=== PATIENT | male | born 1955 | race Caucasian/White ===

== ENCOUNTER 2018-04-10 23:35 | Observation (INO) | payer MEDICARE, BC, OTHER ==
[2018-04-10] MEDS ORDERED: DIPHENHYDRAMINE HCL 50 MG/ML VIAL IV ONE (23:46)
[2018-04-10] MEDS ORDERED: EPINEPHRINE INJ/PF 1 MG/1 ML AMPULE IM ONE (23:46)
[2018-04-10] MEDS ORDERED: FAMOTIDINE INJ/PF 20 MG/2 ML SDV IV ONE (23:46)
[2018-04-10] MEDS ORDERED: METHYLPREDNISOLONE INJ 125 MG/2 ML SDV IV ONE (23:46)
[2018-04-10] MEDS ORDERED: EPINEPHRINE INJ/PF 1 MG/1 ML AMPULE ONE (23:46)
--- NOTE | 2018-04-10 23:50 | ER Document Report ---
ED General - General Chief Complaint: Allergic Reaction Stated Complaint: POSSIBLE ALLERGIC REACTION Time Seen by Provider: 04/10/18 23:42 Notes: Patient is a 63-year-old male who presents with complaint of lip and tongue swelling. Patient said that symptoms initially started right after he was bit by fire ants working in the front yard. He does not take any CELINE inhibitors. He says he also has some itching watery eyes. Patient says symptoms have progressed over last couple hours and eventually his family told me he had to come in to be evaluated because his speech was becoming funny because his tongue was swelling. He denies difficulty breathing or swallowing at this time. He does admit to drinking some alcohol today and says he does drink every day but does not get withdrawal if he goes without drinking. He does smoke. He denies history of COPD or emphysema. He has no other complaints at this time. TRAVEL OUTSIDE OF THE [place] IN LAST 30 DAYS: No - Related Data Allergies/Adverse Reactions: No Known Allergies Allergy (Unverified 08/09/15 23:44) Past Medical History - Social History Smoking Status: Current Every Day Smoker Frequency of alcohol use: Heavy Drug Abuse: None Family History: Reviewed & Not Pertinent Review of Systems - Review of Systems Notes: My Normal Review Basic REVIEW OF SYSTEMS: CONSTITUTIONAL : Denies fever, chills, or sweats. Denies recent illness. EENT: Tongue and lip swelling CARDIOVASCULAR: Denies chest pain. RESPIRATORY: Denies cough, cold, or chest congestion. Denies shortness of breath, difficulty breathing, or wheezing. GASTROINTESTINAL: Denies abdominal pain. Denies nausea, vomiting, or diarrhea. Denies constipation. Last BM: MUSCULOSKELETAL: Denies neck or back pain or joint pain or swelling. SKIN: Denies rash or skin lesions. NEUROLOGICAL: Denies altered mental status or loss of consciousness. Denies headache. Denies weakness or paralysis or loss of use of either side. Denies problems with gait or speech. Denies sensory or motor loss. ALL OTHER SYSTEMS REVIEWED AND NEGATIVE. Physical Exam - Vital signs Vitals: Resp Pulse Ox 16 100 04/10/18 23:46 04/10/18 23:46 - Notes Notes: General Appearance: Well nourished, alert, cooperative, no acute distress, no obvious discomfort. Well-appearing without distress. Normal voice with just very slightly slurred speech because of his enlarged tongue. Vitals: reviewed, See vital signs table. Head: no swelling or tenderness to the head Eyes: PERRL, EOMI, Conjuctiva clear Mouth: Patient does have some tongue swelling. Is able to fully stick his tongue out his mouth and pulled back in his mouth without difficulty. No posterior pharyngeal swelling. Mild swelling of the lips. Throat: No tonsillar inflammation, No airway obstruction, No lymphadenopathy Neck: Supple, no neck tenderness, No thyromegaly Lungs: No wheezing, No rales, No rhonci, No accessory muscle use, good air exchange bilaterally. Heart: Normal rate, Regular rythm, No murmur, no rub Extremities: strength 5/5 in all extremities, good pulses in all extremities, no swelling or tenderness in the extremities, no edema. Skin: warm, dry, appropriate color, small bumps on patient's feet consistent with fire ant bites. Neuro: speech clear, oriented x 3, normal affect, responds appropriately to questions. Course - Re-evaluation Re-evalutation: 04/11/18 00:31 I did reevaluate the patient. He says he continues to feel well. His tongue is still enlarged. This may be just a little smaller than was earlier. Is no distress and continues to look well. We will continue to monitor the patient. He is having occasional PVCs. Will withhold any further epi at this time unless is absolutely needed. He denies any chest pain. 04/11/18 02:33 Patient's continues to have some mild tongue swelling. Swelling got worse and is not getting any better since last time I checked him. He did have a blood pressure was 91/69. I rechecked him realize he was laying on top of his blood pressure cuff. I repositioned him and his blood pressure on recheck is 112/78. He looks well. He has got no evidence of impending airway compromise at this time. Being that his tongue swelling is not significantly improved I think is appropriate treatment for observation. I did speak with the hospitalist, Dr. Haley, agrees to admit him. Of note the patient's serum creatinine is elevated. The only creatinine I have to compare to is from 2015. - Vital Signs Vital signs: Temp Pulse Resp BP Pulse Ox 20 104/70 93 04/11/18 02:02 04/11/18 02:01 04/11/18 02:02 - Laboratory Result Diagrams: 04/11/18 00:37 04/11/18 00:37 Laboratory results interpreted by me: 04/11/18 04/11/18 00:37 00:37 WBC 10.8 H RBC 4.27 L Carbon Dioxide 21 L BUN 38 H Creatinine 2.15 H Est GFR ( Amer) 38 L Est GFR (Non-Af Amer) 31 L Glucose 137 H Discharge - Discharge Clinical Impression: Tongue swelling, Renal insufficiency Allergic reaction Qualifiers: Encounter type: initial encounter Qualified Code(s): T78.40XA - Allergy, unspecified, initial encounter Condition: Stable Disposition: ADMITTED OBSERVATION Admitting Provider: Hospitalist Unit Admitted: [facility]
[2018-04-11 00:56] LABS: ABSOLUTE BASOPHILS # (AUTO) 0.1 10^3/uL (0.0-0.2); ABSOLUTE EOSINOPHILS # (AUTO) 0.2 10^3/uL (0.0-0.6); ABSOLUTE LYMPHOCYTES (AUTO) 4.2 10^3/uL (0.5-4.7); ABSOLUTE NEUT (AUTO) 5.3 10^3/uL (1.7-8.2); EOSINOPHILS % (AUTO) 1.7 % (0-6); HEMATOCRIT 39.9 % (37.9-51.0); LYMPHOCYTES % (AUTO) 38.8 % (13-45); MEAN CORPUSCULAR HEMOGLOBIN 32.7 pg (27.0-33.4); MEAN CORPUSCULAR VOLUME 93 fl (80-97); MONOCYTES % (AUTO) 9.7 % (3-13); PLATELET COUNT 201 10^3/uL (150-450); RED BLOOD COUNT 4.27 10^6/uL (4.35-5.55); RED CELL DISTRIBUTION WIDTH 13.6 % (11.5-14.0); SEGMENTED NEUTROPHILS % (AUTO) 48.8 % (42-78); TOTAL CELLS COUNTED % (AUTO) 100 %; WHITE BLOOD COUNT 10.8 10^3/uL (4.0-10.5)
[2018-04-11 01:05] LABS: ANION GAP 14 (5-19); BLOOD UREA NITROGEN 38 mg/dL (7-20); CALCIUM 9.8 mg/dL (8.4-10.2); CARBON DIOXIDE 21 mmol/L (22-30); CHLORIDE 106 mmol/L (98-107); GLUCOSE 137 mg/dL (75-110); POTASSIUM 4.2 mmol/L (3.6-5.0); SODIUM 140.5 mmol/L (137-145)
[2018-04-11] MEDS ORDERED: PROMETHAZINE HCL INJ 25 MG/1 ML VIAL IV PRN (02:29)
[2018-04-11] MEDS ORDERED: ACETAMINOPHEN 325 MG TABLET PO PRN (02:29)
[2018-04-11] MEDS ORDERED: METHYLPREDNISOLONE INJ 40 MG/1 ML SDV IV ONE (02:34)
[2018-04-11] MEDS ORDERED: NORMAL SALINE 1000 ML 1,000 ML IV PRN (02:37)
[2018-04-11] MEDS ORDERED: FAMOTIDINE 20 MG TABLET PO ONE (02:45)
--- NOTE | 2018-04-11 02:47 | PDOC H&P ---
History of Present Illness History of Present Illness: TANG CHU is a 63 year old male patient who presented with chief complaint of swelling of his tongue and lip after he was bit by fire ants while he was moving his yard. Patient also complaining of itchiness and watery eyes. Patient has history of hypertension and hyperlipidemia and he is also everyday smoker. He denies use of CELINE inhibitors for his hypertension. Patient was given epinephrine, Benadryl, H2 anthony and Solu-Medrol. There is no sign and symptoms of throat swelling or difficulty of breathing. Patient denies any fever cough nausea, vomiting, diarrhea. His lab work shows creatinine of 2.15 and GFR of 34. We do not know his baseline creatinine seems more of chronic kidney disease. Past Medical History Cardiac Medical History: Reports: DVT, Hypertension Past Surgical History Past Surgical History: Reports: None Social History Smoking Status: Current Every Day Smoker Frequency of Alcohol Use: None Hx Recreational Drug Use: No Hx Prescription Drug Abuse: No - Advance Directive Resuscitation Status: Full Code Family History Family History: None, Reviewed & Not Pertinent Parental Family History Reviewed: Yes Children Family History Reviewed: Yes Sibling(s) Family History Reviewed.: Yes Medication/Allergy Home Medications: Aspirin [[place] Aspirin] 81 mg PO DAILY 08/10/15 Nebivolol HCl [Bystolic 10 mg Tablet] 10 mg PO DAILY 08/10/15 Rivaroxaban [Xarelto 10 mg Tablet] 20 mg PO DAILY 08/10/15 Albuterol Sulfate [Albuterol Sulfate Hfa] 1 - 2 puff IH Q6HP PRN #1 hfa.aer.ad 08/11/15 Fluticasone Propionate [Flonase Nasal [place] 50 Mcg/[place] 16 gm] 2 spray NASL DAILY 30 Days spray.pump 08/11/15 Levofloxacin [Levaquin 750 mg Tablet] 750 mg PO DAILY #10 tab 08/11/15 Loratadine [Claritin 10 mg Tablet] 10 mg PO DAILY #30 tablet 08/11/15 Allergies/Adverse Reactions: No Known Allergies Allergy (Unverified 08/09/15 23:44) Review of Systems Constitutional: ABSENT: chills, fever(s), headache(s), weight gain, weight loss Ears: ABSENT: hearing changes Cardiovascular: PRESENT: other - Aortic aneurysm of unspecified site. ABSENT: chest pain, dyspnea on exertion, edema, orthropnea, palpitations Genitourinary: ABSENT: dysuria, hematuria Neurological: ABSENT: abnormal gait, abnormal speech, confusion, dizziness, focal weakness, syncope Psychiatric: ABSENT: anxiety, depression, homidical ideation, suicidal ideation Physical Exam Vital Signs: Temp Pulse Resp BP Pulse Ox 20 104/70 93 04/11/18 02:02 04/11/18 02:01 04/11/18 02:02 Intake & Output 04/09/18 04/10/18 04/11/18 06:59 06:59 06:59 Weight 124.9 kg General appearance: PRESENT: mild distress Head exam: PRESENT: atraumatic, normocephalic Mouth exam: PRESENT: other - Swollen tongue and lip Neck exam: ABSENT: carotid bruit, JVD, lymphadenopathy, thyromegaly Respiratory exam: PRESENT: clear to auscultation felix. ABSENT: rales, rhonchi, wheezes Cardiovascular exam: PRESENT: RRR. ABSENT: diastolic murmur, rubs, systolic murmur GI/Abdominal exam: PRESENT: normal bowel sounds, soft. ABSENT: distended, guarding, mass, organolmegaly, rebound, tenderness Extremities exam: PRESENT: full ROM. ABSENT: calf tenderness, clubbing, pedal edema Neurological exam: PRESENT: alert, awake, oriented to person, oriented to place , oriented to time, oriented to situation, CN II-XII grossly intact. ABSENT: motor sensory deficit Psychiatric exam: PRESENT: appropriate affect, normal mood. ABSENT: homicidal ideation, suicidal ideation Results Laboratory Results: 04/11/18 00:37 04/11/18 00:37 04/11/18 04/11/18 00:37 00:37 WBC 10.8 H RBC 4.27 L Hgb 14.0 Hct 39.9 MCV 93 MCH 32.7 MCHC 35.0 RDW 13.6 Plt Count 201 Seg Neutrophils % 48.8 Lymphocytes % 38.8 Monocytes % 9.7 Eosinophils % 1.7 Basophils % 1.0 Absolute Neutrophils 5.3 Absolute Lymphocytes 4.2 Absolute Monocytes 1.0 Absolute Eosinophils 0.2 Absolute Basophils 0.1 Sodium 140.5 Potassium 4.2 Chloride 106 Carbon Dioxide 21 L Anion Gap 14 BUN 38 H Creatinine 2.15 H Est GFR ( Amer) 38 L Est GFR (Non-Af Amer) 31 L Glucose 137 H Calcium 9.8 Assessment & Plan - Diagnosis (1) Angioedema Is this a current diagnosis for this admission?: Yes Plan: Patient signs and symptoms are subsiding. He has been started on Solu-Medrol and Pepcid. Potential discharge within 24 hours (2) Hypertension Qualifiers: Hypertension type: essential hypertension Qualified Code(s): I10 - Essential (primary) hypertension Is this a current diagnosis for this admission?: Yes Plan: Continue his home medications. (3) Thoracic ascending aortic aneurysm Is this a current diagnosis for this admission?: Yes Plan: Stable. Patient has follow-up at [facility]
[2018-04-11] MEDS ORDERED: LANSOPRAZOLE 30 MG TAB.RAP.DR PO SCH (06:00)
[2018-04-11 08:58] LABS: ANION GAP 11 (5-19); BLOOD UREA NITROGEN 39 mg/dL (7-20); CALCIUM 10.5 mg/dL (8.4-10.2); CARBON DIOXIDE 21 mmol/L (22-30); CHLORIDE 104 mmol/L (98-107); GLUCOSE 221 mg/dL (75-110); POTASSIUM 4.8 mmol/L (3.6-5.0); SODIUM 136.2 mmol/L (137-145)
[2018-04-11] MEDS ORDERED: FAMOTIDINE 20 MG TABLET PO SCH (10:00)
[2018-04-11] MEDS ORDERED: ENOXAPARIN SODIUM INJ 40 MG/0.4 ML DISP.SYRIN SUBCUT SCH (10:00)
[2018-04-11 13:11] VITALS: BP 152/100
--- NOTE | 2018-04-11 17:23 | PDOC DISCHARGE SUMMARY ---
General - Admit/Disc Date/PCP Admission Date/Primary Care Provider: 04/11/18 02:37 Discharge Date: 04/11/18 - Discharge Diagnosis (1) Allergic reaction Is this a current diagnosis for this admission?: Yes Summary: Patient had an allergic reaction to fire ant bite. It was probably multiple bites. This is in the hymenoptera insect category. He has been bitten by bees and wasps in the past without reaction though he may now have allergic reactions to all of these insects. I have discharged patient with an epinephrine pen. (2) Angioedema Is this a current diagnosis for this admission?: Yes Summary: Patient had angioedema with tongue and lip swelling and voice change after being bitten by probably several fire aunts. He was brought to the ER and under treatment in the ER with epinephrine, Benadryl, histamine blockers steroids. He was admitted to the hospitalist for observation. He had improvement in symptoms with the therapies and was discharged with 5 days of H2- anthony, Benadryl, prednisone and an EpiPen. He knows to return to medical care with concerning symptoms. (3) Acute kidney injury Is this a current diagnosis for this admission?: Yes Summary: Patient was admitted with an elevated creatinine greater than 2. After some fluid hydration his creatinine improved to 1.5. He and his do not know if he has any chronic kidney disease. I gave him another liter of fluid prior to discharge and asked him to be seen by his primary care doctor for a repeat basic metabolic panel to assure that he is back to his baseline safely. (4) Elevated glucose Is this a current diagnosis for this admission?: Yes Summary: Patient does not have a diagnosis of diabetes. While he was here he drinks multiple sodas. He had several blood glucose levels that were elevated. Hemoglobin A1c was not checked. He was discharged with instructions to adhere to a diabetic diet and to see his primary care doctor within the next few days for evaluation for possible diabetes. (5) Hypertension Is this a current diagnosis for this admission?: Yes Summary: He has hypertension at baseline. On the morning of discharge his blood pressure was starting to increase and I offered that we could give him his home meds here prior to discharge and he declined, stating that he would take his medications when he got home. Blood pressure was in a safe range for discharge. - Additional Information Resuscitation Status: Full Code Discharge Diet: Cardiac, Diabetic Discharge Activity: Balance Activity w/Rest Prescriptions: Diphenhydramine HCl [Benadryl] 25 mg PO Q6H 5 Days #20 capsule Epinephrine [Epipen 2-Marin] 0.3 mg IJ PRN PRN 30 Days #1 auto.injct PRN Reason: Famotidine [Pepcid 20 mg Tablet] 40 mg PO Q12 5 Days #10 tablet Lansoprazole [Prevacid 30 mg Odt Tablet] 30 mg PO Q6AM 30 Days #30 tab.rap Prednisone 20 mg PO DAILY 5 Days #5 tablet Home Medications: Aspirin [[place] Aspirin] 81 mg PO DAILY 08/10/15 Rivaroxaban [Xarelto 10 mg Tablet] 20 mg PO QPM 08/10/15 Allopurinol [Zyloprim 300 mg Tablet] 300 mg PO DAILY 04/11/18 Atenolol [Tenormin 50 mg Tablet] 50 mg PO DAILY 04/11/18 Atorvastatin Calcium [Lipitor 40 mg Tablet] 40 mg PO DAILY 04/11/18 Diphenhydramine HCl [Benadryl] 25 mg PO Q6H 5 Days #20 capsule 04/11/18 Epinephrine [Epipen 2-Marin] 0.3 mg IJ PRN PRN 30 Days #1 auto.injct 04/11/18 Famotidine [Pepcid 20 mg Tablet] 40 mg PO Q12 5 Days #10 tablet 04/11/18 Lansoprazole [Prevacid 30 mg Odt Tablet] 30 mg PO Q6AM 30 Days #30 tab.rap. Prednisone 20 mg PO DAILY 5 Days #5 tablet 04/11/18 Tadalafil [Cialis] 5 mg PO DAILY 04/11/18 Valsartan/Hydrochlorothiazide [Valsartan-Hctz 320-25 mg Tab] 1 tab PO DAILY 01/24 History of Present Illness History of Present Illness: TANG CHU is a 63 year old male patient who presented with chief complaint of swelling of his tongue and lip after he was bit by fire ants while he was moving his yard. Patient also complaining of itchiness and watery eyes. Patient has history of hypertension and hyperlipidemia and he is also everyday smoker. He denies use of CELINE inhibitors for his hypertension. Patient was given epinephrine, Benadryl, H2 anthony and Solu-Medrol. There is no sign and symptoms of throat swelling or difficulty of breathing. Patient denies any fever cough nausea, vomiting, diarrhea. His lab work shows creatinine of 2.15 and GFR of 34. We do not know his baseline creatinine seems more of chronic kidney disease. Hospital Course Hospital Course: See hospital course by problem list. Physical Exam Vital Signs: Temp Pulse Resp BP Pulse Ox 97.8 F 87 21 H 152/100 H 94 04/11/18 12:00 04/11/18 04:45 04/11/18 13:01 04/11/18 13:01 04/11/18 13:01 Intake & Output 04/10/18 04/11/18 04/12/18 06:59 06:59 06:59 Intake Total 355 Output Total 0 800 Balance 355 -800 Weight 122.7 kg General appearance: PRESENT: no acute distress, cooperative, obese Eye exam: PRESENT: PERRLA. ABSENT: conjunctival injection, scleral icterus Mouth exam: PRESENT: moist, tongue midline Throat exam: PRESENT: other - Tongue objectively enlarged, improved after several hours on re-examination. Lips without edema.. ABSENT: post pharyngeal erythema Neck exam: ABSENT: lymphadenopathy Respiratory exam: PRESENT: clear to auscultation felix, unlabored. ABSENT: rales , rhonchi, wheezes Cardiovascular exam: PRESENT: RRR. ABSENT: systolic murmur GI/Abdominal exam: PRESENT: normal bowel sounds, soft. ABSENT: distended, guarding, tenderness Extremities exam: ABSENT: pedal edema Musculoskeletal exam: PRESENT: normal inspection Neurological exam: PRESENT: alert, awake, oriented to person, oriented to place , oriented to situation, CN II-XII grossly intact, normal gait Psychiatric exam: PRESENT: appropriate affect Skin exam: PRESENT: dry, intact, warm, other - Patient is sunburned over sun exposed areas. No rash. No hives. Results Laboratory Results: 04/11/18 08:14 04/11/18 08:14 Sodium 136.2 L Potassium 4.8 Chloride 104 Carbon Dioxide 21 L Anion Gap 11 BUN 39 H Creatinine 1.59 H Est GFR ( Amer) 53 L Est GFR (Non-Af Amer) 44 L Glucose 221 H Calcium 10.5 H Qualifiers - * PATIENT BEING DISCHARGED WITH ANY OF THE FOLLOWING DIAGNOSIS: No
== END 2018-04-11 14:35 | disposition home or self-care (01) ==
LOC: ER 23:35 → EH 04-11 02:37 → ICU 04-11 04:06
PROVIDERS: ADMIT Internal Medicine; ATTEND Internal Medicine
DX: T78.3XXA Angioneurotic edema, initial encounter (principal); T63.421A Toxic effect of venom of ants, accidental (unintentional), initial encounter; Y92.007 Garden or yard of unspecified non-institutional (private) residence as the place of occurrence of the external cause; N17.9 Acute kidney failure, unspecified; R73.9 Hyperglycemia, unspecified; I10 Essential (primary) hypertension; I71.2 Thoracic aortic aneurysm, without rupture; L55.9 Sunburn, unspecified; I49.3 Ventricular premature depolarization; E78.5 Hyperlipidemia, unspecified; Z79.82 Long term (current) use of aspirin; F17.200 Nicotine dependence, unspecified, uncomplicated; Z79.899 Other long term (current) drug therapy; Z86.718 Personal history of other venous thrombosis and embolism; Z79.02 Long term (current) use of antithrombotics/antiplatelets
CPT/HCPCS: 99284; 96372; 96374; 96375; 36415; 85025; 80048; G0378 ×2; A9270 ×2; J1200; J0171; J2920; J2930; S0028

== ENCOUNTER 2018-05-21 06:47 | Emergency (ER) | payer MEDICARE, BC, OTHER ==
--- NOTE | 2018-05-21 07:11 | ER Document Report ---
ED GI/ - General Chief Complaint: Pain With Urination Stated Complaint: URINARY PROBLEM Time Seen by Provider: 05/21/18 07:11 Mode of Arrival: Ambulatory Information source: Patient Notes: 63 yo smoker male had prostate biopsy (PSA 9.2) under US this thursday ([facility]-Dr. Lopez) went home. Little bit of blood next day, then clear. At 0200 urge to urinate, finally after trying drip blood and clots with urethral burning. Took antibiotics thursday through twice a day ? name. BM normal. No fever or chills.No abdominal pain. No testicle or rectal pain. No other bleeding. Took xarelto, ASA, or BP since last week. PCP: dr Esquivel in [place]. HX HTN, DVT, gout, hyperlipidemia, valve problem since [place]( heart murmur). TRAVEL OUTSIDE OF THE [place] IN LAST 30 DAYS: No - Related Data Allergies/Adverse Reactions: No Known Allergies Allergy (Unverified 08/09/15 23:44) Past Medical History - General Information source: Patient - Social History Smoking Status: Current Every Day Smoker Frequency of alcohol use: None Drug Abuse: None Lives with: Spouse/Significant other Family History: Reviewed & Not Pertinent - Past Medical History Cardiac Medical History: Reports: Hx DVT, Hx Hypertension Renal/ Medical History: Reports: Other - elevated PSA. Denies: Hx Peritoneal Dialysis Review of Systems - Review of Systems Constitutional: No symptoms reported EENT: No symptoms reported Cardiovascular: No symptoms reported Respiratory: No symptoms reported Gastrointestinal: No symptoms reported Genitourinary: See HPI Male Genitourinary: No symptoms reported Musculoskeletal: No symptoms reported Skin: No symptoms reported Hematologic/Lymphatic: No symptoms reported Neurological/Psychological: No symptoms reported Physical Exam - Vital signs Vitals: Temp Pulse Resp BP Pulse Ox 98.3 F 119 H 24 H 177/117 H 97 05/21/18 06:48 05/21/18 06:48 05/21/18 06:48 05/21/18 06:48 05/21/18 06:48 Interpretation: Normal - General General appearance: Appears well, Alert - HEENT Head: Normocephalic, Atraumatic Eyes: Normal Pupils: PERRL Neck: Supple - Respiratory Respiratory status: No respiratory distress Chest status: Nontender Breath sounds: Normal Chest palpation: Normal - Cardiovascular Rhythm: Regular Heart sounds: Normal auscultation Murmur: No - Abdominal Inspection: Obese Distension: No distension Bowel sounds: Normal Tenderness: Nontender. No: Tender Organomegaly: No organomegaly - Genitourinary Tenderness: No: Lesions Scrotum: Normal - Back Back: Normal, Nontender. No: CVA tenderness - Extremities General upper extremity: Normal inspection, Nontender, Normal color, Normal ROM , Normal temperature General lower extremity: Normal inspection, Nontender, Normal color, Normal ROM , Normal temperature, Normal weight bearing. No: Vamsi's sign - Neurological Neuro grossly intact: Yes Cognition: Normal Orientation: AAOx4 [place] Coma Scale Eye Opening: Spontaneous [place] Coma Scale Verbal: Oriented [place] Coma Scale Motor: Obeys Commands [place] Coma Scale Total: 15 Speech: Normal Motor strength normal: LUE, RUE, LLE, RLE Sensory: Normal - Psychological Associated symptoms: Normal affect, Normal mood - Skin Skin Temperature: Warm Skin Moisture: Dry Skin Color: Normal Course - Re-evaluation Re-evalutation: 05/21/18 09:[address] Beauchamp, rec. bladder scan after voiding to check for post void residual. 05/21/18 11:30 nurses have been unable to locate the bladder scanner until 2nd floor brought it down and it would not work 05/21/18 11:50 dr beauchamp used US 500 retained urine after frequent voiding. therefore oleary ordered with CBI. 05/21/18 14:29 urine yellow, tiny clots only with the 4000 ml NS -CBI, bp normal now, feels much better. 05/21/18 14:[address] Mendez the urologist. He recommended several things for this patient. He wanted me to hand irrigate was 2-300 mm of sterile saline with a catheter tip syringe to make sure there is no blood clot in the catheter, plug off the extra third port on the Oleary, have the patient schedule appointment Thursday or Thursday, Neosporin to the tip of the catheter, and to give him his cell phone number which is [phone] and to tell him that he will check on him this morning or he could call him if he has any concerns. - Vital Signs Vital signs: Temp Pulse Resp BP Pulse Ox 98.3 F 119 H 19 124/87 H 96 05/21/18 06:48 05/21/18 06:48 05/21/18 15:00 05/21/18 15:00 05/21/18 15:00 - Laboratory Result Diagrams: 05/21/18 07:24 05/21/18 07:24 Laboratory results interpreted by me: 05/21/18 05/21/18 05/21/18 07:24 07:24 07:24 RBC 4.24 L Glucose 155 H Urine Protein 100 H Urine Blood LARGE H Discharge - Discharge Clinical Impression: Hematuria Condition: Good Disposition: HOME, SELF-CARE Instructions: Ciprofloxacin ([facility]), Oleary Catheter Care ([facility]) Additional Instructions: drink plenty of water Keep the Oleary catheter clean with bacitracin around the tube anterior urethra Call the urologist office on Thursday for an appointment Thursday or Thursday to get the Oleary removed The urologist Dr. Mendez's cell phone number is [phone] he will check on you this I gave me her phone number and you can also call him with any questions or concerns Leave the blue plug into the X report do not remove it Return to the emergency room for any problems or inability to empty bladder this weekend, fever, vomiting, any concerns Do not take your aspirin or Xarelto according to the urologist Do restart your blood pressure medication given a dose today Prescriptions: Ciprofloxacin HCl [Cipro 500 mg Tablet] 500 mg PO BID #10 tablet Referrals: LUZ ELENA MENDEZ MD [Primary Care Provider] - 05/24/18
[2018-05-21] MEDS ORDERED: PHENAZOPYRIDINE HCL 100 MG TABLET PO ONE (07:27)
[2018-05-21] MEDS ORDERED: ONDANSETRON 4 MG TAB.RAPDIS PO ONE (07:27)
[2018-05-21] MEDS ORDERED: CIPROFLOXACIN HCL 500 MG TABLET PO ONE (07:41)
[2018-05-21] MEDS ORDERED: ATENOLOL 50 MG TABLET PO ONE (07:42)
[2018-05-21] MEDS ORDERED: VALSARTAN 160 MG TABLET PO ONE (07:42)
[2018-05-21] MEDS ORDERED: HYDROCHLOROTHIAZIDE 25 MG TABLET PO ONE (07:43)
[2018-05-21 07:45] LABS: ABSOLUTE BASOPHILS # (AUTO) 0.1 10^3/uL (0.0-0.2); ABSOLUTE LYMPHOCYTES (AUTO) 1.3 10^3/uL (0.5-4.7); ABSOLUTE MONOCYTES (AUTO) 0.6 10^3/uL (0.1-1.4); BASOPHILS % (AUTO) 0.7 % (0-2); EOSINOPHILS % (AUTO) 0.6 % (0-6); HEMATOCRIT 39.4 % (37.9-51.0); LYMPHOCYTES % (AUTO) 15.9 % (13-45); MEAN CORPUSCULAR HEMOGLOBIN 32.9 pg (27.0-33.4); MEAN CORPUSCULAR HGB CONC 35.5 g/dL (32.0-36.0); MEAN CORPUSCULAR VOLUME 93 fl (80-97); MONOCYTES % (AUTO) 7.9 % (3-13); PLATELET COUNT 177 10^3/uL (150-450); RED BLOOD COUNT 4.24 10^6/uL (4.35-5.55); SEGMENTED NEUTROPHILS % (AUTO) 74.9 % (42-78); TOTAL CELLS COUNTED % (AUTO) 100 %
[2018-05-21] MEDS ORDERED: PHENAZOPYRIDINE HCL 200 MG TABLET PO ONE (07:45)
[2018-05-21 07:59] LABS: INTERNATIONAL RATION (INR) 0.94
[2018-05-21 08:00] LABS: PARTIAL THROMBOPLASTIN TIME 27.9 SEC (23.5-35.8)
[2018-05-21 08:05] LABS: ALANINE AMINOTRANSFERASE 37 U/L (21-72); ALBUMIN 4.2 g/dL (3.5-5.0); ALKALINE PHOSPHATASE 45 U/L (38-126); ANION GAP 12 (5-19); ASPARTATE AMINO TRANSFERASE 28 U/L (17-59); BILIRUBIN,DIRECT 0.4 mg/dL (0.0-0.4); BILIRUBIN,TOTAL 0.8 mg/dL (0.2-1.3); BLOOD UREA NITROGEN 18 mg/dL (7-20); CALCIUM 9.4 mg/dL (8.4-10.2); CARBON DIOXIDE 24 mmol/L (22-30); CHLORIDE 106 mmol/L (98-107); GLUCOSE 155 mg/dL (75-110); POTASSIUM 4.2 mmol/L (3.6-5.0); SODIUM 141.7 mmol/L (137-145); TOTAL PROTEIN 6.6 g/dL (6.3-8.2)
[2018-05-21 08:37] LABS: APPEARANCE,URINE SLIGHTLY-CLOUDY; BILIRUBIN,URINE NEGATIVE (NEGATIVE); GLUCOSE, URINE NEGATIVE (NEGATIVE); KETONES,URINE NEGATIVE (NEGATIVE); LEUKOCYTE ESTERASE,URINE NEGATIVE (NEGATIVE); NITRITE,URINE NEGATIVE (NEGATIVE); PROTEIN,URINE 100 mg/dL (NEGATIVE); URINE SPECIFIC GRAVITY 1.019; UROBILINOGEN,URINE NEGATIVE mg/dL (<2.0)
[2018-05-21 08:39] LABS: COLOR,URINE AMBER
[2018-05-21] MEDS ORDERED: BUPRENORPHINE HCL 2 MG SUBLINGUAL TABLET SL ONE (09:10)
[2018-05-21] MEDS ORDERED: LIDOCAINE 2% URO-JET 5 ML KIT MM ONE (12:24)
[2018-05-21 15:19] VITALS: BP 124/87
== END 2018-05-21 13:45 | disposition home or self-care (01) ==
LOC: ER 06:47
DX: R31.9 Hematuria, unspecified (principal); R30.0 Dysuria; F17.200 Nicotine dependence, unspecified, uncomplicated
CPT/HCPCS: 36415; 87086; 85025; 85610; 85730; 80053; 81001; A9270 ×6; 51702; 99284; J3490; S0119

== ENCOUNTER 2018-05-22 08:07 | Emergency (ER) | payer MEDICARE, BC, OTHER ==
[2018-05-22 11:53] LABS: ABSOLUTE LYMPHOCYTES (AUTO) 1.3 10^3/uL (0.5-4.7); ABSOLUTE MONOCYTES (AUTO) 0.6 10^3/uL (0.1-1.4); ABSOLUTE NEUT (AUTO) 6.5 10^3/uL (1.7-8.2); BASOPHILS % (AUTO) 0.5 % (0-2); EOSINOPHILS % (AUTO) 0.3 % (0-6); HEMATOCRIT 39.8 % (37.9-51.0); LYMPHOCYTES % (AUTO) 14.9 % (13-45); MEAN CORPUSCULAR HEMOGLOBIN 32.9 pg (27.0-33.4); MEAN CORPUSCULAR HGB CONC 35.2 g/dL (32.0-36.0); MEAN CORPUSCULAR VOLUME 94 fl (80-97); MONOCYTES % (AUTO) 6.7 % (3-13); PLATELET COUNT 182 10^3/uL (150-450); RED BLOOD COUNT 4.26 10^6/uL (4.35-5.55); RED CELL DISTRIBUTION WIDTH 13.2 % (11.5-14.0); SEGMENTED NEUTROPHILS % (AUTO) 77.6 % (42-78); TOTAL CELLS COUNTED % (AUTO) 100 %; WHITE BLOOD COUNT 8.4 10^3/uL (4.0-10.5)
[2018-05-22 11:59] LABS: INTERNATIONAL RATION (INR) 0.94
[2018-05-22 12:00] LABS: PARTIAL THROMBOPLASTIN TIME 28.3 SEC (23.5-35.8)
[2018-05-22 12:01] LABS: APPEARANCE,URINE SLIGHTLY-CLOUDY; BILIRUBIN,URINE NEGATIVE (NEGATIVE); COLOR,URINE AMBER; GLUCOSE, URINE NEGATIVE (NEGATIVE); KETONES,URINE NEGATIVE (NEGATIVE); LEUKOCYTE ESTERASE,URINE NEGATIVE (NEGATIVE); NITRITE,URINE NEGATIVE (NEGATIVE); PROTEIN,URINE 30 mg/dL (NEGATIVE); UROBILINOGEN,URINE NEGATIVE mg/dL (<2.0)
--- NOTE | 2018-05-22 12:07 | ER Document Report ---
HPI - HPI Patient complains to provider of: Brewer catheter problem Onset: This morning Onset/Duration: Gradual Quality of pain: Achy Pain Level: 3 Context: Patient has a Brewer to leg bag after having difficulty voiding after a prostate biopsy 4 days ago. Patient states that around 5:00 this morning his catheter stopped draining. Patient complains of pressure to the bladder area. Patient denies any fever, abdominal pain or back pain. Associated Symptoms: denies: Fever Exacerbated by: Denies Relieved by: Denies Similar symptoms previously: No Recently seen / treated by doctor: Yes - ROS ROS below otherwise negative: Yes Systems Reviewed and Negative: Yes All other systems reviewed and negative - CONSTITUTIONAL Constitutional: DENIES: Fever - GASTROINTESTINAL Gastrointestinal: DENIES: Abdominal Pain - URINARY Urinary: DENIES: Dysuria Notes: Hematuria - REPRODUCTIVE Reproductive: DENIES: : - MUSCULOSKELETAL Musculoskeletal: DENIES: Back Pain - DERM Skin Color: Normal, [place] Skin Problems: None Past Medical History - General Information source: Patient - Social History Smoking Status: Current Every Day Smoker Chew tobacco use (# tins/day): No Smoking Education Provided: Yes Frequency of alcohol use: Occasional Drug Abuse: None Lives with: Spouse/Significant other Family History: Reviewed & Not Pertinent Patient has suicidal ideation: No Patient has homicidal ideation: No - Past Medical History Cardiac Medical History: Reports: Hx DVT, Hx Hypercholesterolemia, Hx Hypertension Endocrine Medical History: Reports: Hx Diabetes Mellitus Type 2 Renal/ Medical History: Denies: Hx Peritoneal Dialysis Past Surgical History: Reports: Other - Prostate biopsy Vertical Provider Document - CONSTITUTIONAL Agree With Documented VS: Yes Exam Limitations: No Limitations General Appearance: WD/WN, No Apparent Distress - INFECTION CONTROL TRAVEL OUTSIDE OF THE [place] IN LAST 30 DAYS: No - HEENT HEENT: Atraumatic, Normocephalic - NECK Neck: Normal Inspection, Supple - RESPIRATORY Respiratory: Breath Sounds Normal, No Respiratory Distress - CARDIOVASCULAR Cardiovascular: Regular Rate, Regular Rhythm - GI/ABDOMEN Gastrointestinal: Abdomen Soft, Abdomen Tender - Mild suprapubic tenderness - REPRODUCTIVE Male Genitalia: Abnormal Inspection - Blood noted to leg bag - BACK Back: Normal Inspection. negative: CVA Tenderness-Right, CVA Tenderness-Left - MUSCULOSKELETAL/EXTREMETIES Musculoskeletal/Extremeties: MAEW - NEURO Level of Consciousness: Awake, Alert, Appropriate Motor/Sensory: No Motor Deficit - DERM Integumentary: Warm, Dry, No Rash Course - Re-evaluation Re-evalutation: 05/22/18 12:06 Patient reports feeling much better after catheter was irrigated and clot was removed. Patient with yellow urine to leg bag. 05/22/18 12:[address] Quinones regarding patient presentation and diagnostic evaluation here today. Dr. Quinones will be following up with patient on outpatient basis. Recommends giving patient a Lamont syringe as well as some saline so that patient may irrigate his Brewer as needed if he develops an obstructing clot again. - Vital Signs Vital signs: Temp Pulse Resp BP Pulse Ox 98.0 F 81 18 142/97 H 97 05/22/18 08:16 05/22/18 08:16 05/22/18 08:16 05/22/18 08:16 05/22/18 08:16 - Laboratory Result Diagrams: 05/22/18 11:30 05/22/18 11:30 Laboratory results interpreted by me: 05/22/18 05/22/18 11:30 11:30 RBC 4.26 L Urine Protein 30 H Urine Blood LARGE H 05/22/18 12:29 Labs- Entire Visit 05/22/18 05/22/18 05/22/18 11:30 11:30 11:30 WBC 8.4 RBC 4.26 L Hgb 14.0 Hct 39.8 MCV 94 MCH 32.9 MCHC 35.2 RDW 13.2 Plt Count 182 Seg Neutrophils % 77.6 Lymphocytes % 14.9 Monocytes % 6.7 Eosinophils % 0.3 Basophils % 0.5 Absolute Neutrophils 6.5 Absolute Lymphocytes 1.3 Absolute Monocytes 0.6 Absolute Eosinophils 0.0 Absolute Basophils 0.0 PT 13.0 INR 0.94 APTT 28.3 Sodium 140.3 Potassium 4.3 Chloride 104 Carbon Dioxide 26 Anion Gap 10 BUN 17 Creatinine 1.22 Est GFR ( Amer) > 60 Est GFR (Non-Af Amer) > 60 Glucose 127 H Calcium 10.0 Total Bilirubin 0.9 Direct Bilirubin 0.4 Neonat Total Bilirubin Not Reportable Neonat Direct Bilirubin Not Reportable Neonat Indirect Bili Not Reportable AST 33 ALT 41 Alkaline Phosphatase 45 Total Protein 7.2 Albumin 4.4 Urine Color Urine Appearance Urine pH Ur Specific [place] Urine Protein Urine Glucose (UA) Urine Ketones Urine Blood Urine Nitrite Urine Bilirubin Urine Urobilinogen Ur Leukocyte Esterase Urine WBC (Auto) Urine RBC (Auto) Urine Bacteria (Auto) Urine Ascorbic Acid 05/22/18 11:30 WBC RBC Hgb Hct MCV MCH MCHC RDW Plt Count Seg Neutrophils % Lymphocytes % Monocytes % Eosinophils % Basophils % Absolute Neutrophils Absolute Lymphocytes Absolute Monocytes Absolute Eosinophils Absolute Basophils PT INR APTT Sodium Potassium Chloride Carbon Dioxide Anion Gap BUN Creatinine Est GFR ( Amer) Est GFR (Non-Af Amer) Glucose Calcium Total Bilirubin Direct Bilirubin Neonat Total Bilirubin Neonat Direct Bilirubin Neonat Indirect Bili AST ALT Alkaline Phosphatase Total Protein Albumin Urine Color CLARE Urine Appearance SLIGHTLY-CLOUDY Urine pH 7.0 Ur Specific [place] 1.010 Urine Protein 30 H Urine Glucose (UA) NEGATIVE Urine Ketones NEGATIVE Urine Blood LARGE H Urine Nitrite NEGATIVE Urine Bilirubin NEGATIVE Urine Urobilinogen NEGATIVE Ur Leukocyte Esterase NEGATIVE Urine WBC (Auto) 2 Urine RBC (Auto) >182 Urine Bacteria (Auto) 2+ Urine Ascorbic Acid NEGATIVE Discharge - Discharge Clinical Impression: Brewer catheter problem Qualifiers: Encounter type: initial encounter Qualified Code(s): T83.9XXA - Unspecified complication of genitourinary prosthetic device, implant and graft, initial encounter Condition: Stable Disposition: HOME, SELF-CARE Instructions: Brewer Catheter Care ([facility]) Additional Instructions: Return immediately for any new or worsening symptoms Followup with your primary care provider, call tomorrow to make a followup appointment Follow-up with Dr. Quinones as instructed Forms: Smoking Cessation Education Referrals: LUZ ELENA QUINONES MD [[facility]] - Follow up as needed
[2018-05-22 12:17] LABS: ALANINE AMINOTRANSFERASE 41 U/L (21-72); ALBUMIN 4.4 g/dL (3.5-5.0); ALKALINE PHOSPHATASE 45 U/L (38-126); ANION GAP 10 (5-19); ASPARTATE AMINO TRANSFERASE 33 U/L (17-59); BILIRUBIN,DIRECT 0.4 mg/dL (0.0-0.4); BILIRUBIN,TOTAL 0.9 mg/dL (0.2-1.3); BLOOD UREA NITROGEN 17 mg/dL (7-20); CARBON DIOXIDE 26 mmol/L (22-30); CHLORIDE 104 mmol/L (98-107); GLUCOSE 127 mg/dL (75-110); POTASSIUM 4.3 mmol/L (3.6-5.0); SODIUM 140.3 mmol/L (137-145); TOTAL PROTEIN 7.2 g/dL (6.3-8.2)
[2018-05-22 12:51] VITALS: BP 127/71
== END 2018-05-22 12:50 | disposition home or self-care (01) ==
LOC: ER 08:07
DX: T83.091A Other mechanical complication of indwelling urethral catheter, initial encounter (principal); Y84.6 Urinary catheterization as the cause of abnormal reaction of the patient, or of later complication, without mention of misadventure at the time of the procedure; F17.200 Nicotine dependence, unspecified, uncomplicated; I10 Essential (primary) hypertension; E11.9 Type 2 diabetes mellitus without complications; Z98.890 Other specified postprocedural states; Z86.718 Personal history of other venous thrombosis and embolism
CPT/HCPCS: 36415; 80053; 81001; 85025; 85610; 85730; 99283

== ENCOUNTER 2018-05-22 20:47 | Emergency (ER) | payer MEDICARE, BC, OTHER ==
[2018-05-22 21:06] VITALS: BP 146/97
--- NOTE | 2018-05-22 21:19 | ER Document Report ---
ED General - General Chief Complaint: Problem with Urinary Catheter Stated Complaint: URINARY CATHETER PROBLEM Time Seen by Provider: 05/22/18 21:09 Mode of Arrival: Ambulatory Information source: Patient Notes: 63-year-old male presents the emergency department with complaints of Brewer catheter malfunction. Patient had a prostate biopsy done 4 days ago. He has been to the emergency department twice for catheter issues. Patient states that he keeps having blood clots that clogged the catheter. Patient states that he was just here this morning. He states that the catheter was irrigated. It was flowing fine when he left the emergency department. He states that around 3 PM he noticed that the catheter was not draining. He is now having pressure in the bladder area. Patient has a follow-up appointment with his urologist on Thursday. Currently on cipro for UTI. TRAVEL OUTSIDE OF THE U.S. IN LAST 30 DAYS: No - HPI Onset: This afternoon Onset/Duration: Gradual Quality of pain: Fullness Associated symptoms: None Exacerbated by: Denies Relieved by: Denies Similar symptoms previously: Yes Recently seen / treated by doctor: Yes - Related Data Allergies/Adverse Reactions: No Known Allergies Allergy (Unverified 08/09/15 23:44) Past Medical History - General Information source: Patient - Social History Smoking Status: Current Every Day Smoker Family History: Reviewed & Not Pertinent - Past Medical History Cardiac Medical History: Reports: Hx DVT, Hx Hypercholesterolemia, Hx Hypertension Endocrine Medical History: Reports: Hx Diabetes Mellitus Type 2 Renal/ Medical History: Denies: Hx Peritoneal Dialysis Past Surgical History: Reports: Other - Prostate biopsy Review of Systems - Review of Systems Constitutional: No symptoms reported EENT: No symptoms reported Cardiovascular: No symptoms reported Respiratory: No symptoms reported Gastrointestinal: No symptoms reported Genitourinary: Other - bladder fullness Male Genitourinary: No symptoms reported Musculoskeletal: No symptoms reported Skin: No symptoms reported Hematologic/Lymphatic: No symptoms reported Neurological/Psychological: No symptoms reported -: Yes All other systems reviewed and negative Physical Exam - Vital signs Vitals: Temp Pulse Resp BP Pulse Ox 98.5 F 90 16 146/97 H 96 05/22/18 21:03 05/22/18 21:03 05/22/18 21:03 05/22/18 21:03 05/22/18 21:03 Interpretation: Normal - Notes Notes: PHYSICAL EXAMINATION: GENERAL: Well-appearing, well-nourished and in no acute distress. HEAD: Atraumatic, normocephalic. EYES: Pupils equal round and reactive to light, extraocular movements intact, sclera anicteric, conjunctiva are normal. ENT: Nares patent, oropharynx clear without exudates. Moist mucous membranes. NECK: Normal range of motion, supple without lymphadenopathy LUNGS: Breath sounds clear to auscultation bilaterally and equal. No wheezes rales or rhonchi. HEART: Regular rate and rhythm without murmurs ABDOMEN: Soft, nontender, nondistended abdomen. No guarding, no rebound. No masses appreciated. Musculoskeletal: Normal range of motion, no pitting or edema. No cyanosis. NEUROLOGICAL: Cranial nerves grossly intact. Normal speech, normal gait. Normal sensory, motor exams PSYCH: Normal mood, normal affect. SKIN: Warm, Dry, normal turgor, no rashes or lesions noted. Course - Re-evaluation Re-evalutation: 05/22/18 22:34 Brewer catheter flushed. No large clots. Balloon was deflated then re-inflated. 80cc of urine obtained. Bladder scanner used to see if there was residual urine in the bladder. No urine appreciated. Brewer draining. UA shows signs of infection. Patient currently on cipro. Patient instructed to continue taking medication as directed, to follow up with his urologist Thursday as scheduled, and to return for worsening symptoms. - Vital Signs Vital signs: Temp Pulse Resp BP Pulse Ox 98.5 F 90 16 146/97 H 96 05/22/18 21:03 05/22/18 21:03 05/22/18 21:03 05/22/18 21:03 05/22/18 21:03 - Laboratory Laboratory results interpreted by me: 05/22/18 21:18 Urine Protein 30 H Urine Blood LARGE H Ur Leukocyte Esterase TRACE H Discharge - Discharge Clinical Impression: Brewer catheter problem Qualifiers: Encounter type: subsequent encounter Qualified Code(s): T83.9XXD - Unspecified complication of genitourinary prosthetic device, implant and graft, subsequent encounter Condition: Good Disposition: HOME, SELF-CARE Instructions: Brewer Catheter Care ([facility])
[2018-05-22 21:37] LABS: APPEARANCE,URINE SLIGHTLY-CLOUDY; BILIRUBIN,URINE NEGATIVE (NEGATIVE); COLOR,URINE YELLOW; GLUCOSE, URINE NEGATIVE (NEGATIVE); KETONES,URINE NEGATIVE (NEGATIVE); LEUKOCYTE ESTERASE,URINE TRACE (NEGATIVE); NITRITE,URINE NEGATIVE (NEGATIVE); PROTEIN,URINE 30 mg/dL (NEGATIVE); URINE SPECIFIC GRAVITY 1.018; UROBILINOGEN,URINE NEGATIVE mg/dL (<2.0)
== END 2018-05-22 22:54 | disposition home or self-care (01) ==
LOC: ER 20:47
DX: T83.9XXA Unspecified complication of genitourinary prosthetic device, implant and graft, initial encounter (principal); Y84.6 Urinary catheterization as the cause of abnormal reaction of the patient, or of later complication, without mention of misadventure at the time of the procedure; F17.200 Nicotine dependence, unspecified, uncomplicated; I10 Essential (primary) hypertension; E11.9 Type 2 diabetes mellitus without complications; Z98.890 Other specified postprocedural states
CPT/HCPCS: 81001; 99283

== ENCOUNTER 2018-05-23 11:16 | Emergency (ER) | payer MEDICARE, BC, OTHER ==
[2018-05-23 11:24] VITALS: BP 147/97
--- NOTE | 2018-05-23 11:31 | ER Document Report ---
ED Medical Screen (RME) - General Chief Complaint: Problem with Urinary Catheter Stated Complaint: [place] CATH PROBLEMS Time Seen by Provider: 05/23/18 11:26 Mode of Arrival: Ambulatory Information source: Patient, [facility] Records Notes: 63-year-old male with coronary artery disease, hypertension, hyperlipidemia, type 2 diabetes, enlarged prostate presents for the fourth time this week with issues with his recently placed [place] catheter. Patient had a biopsy performed 5 days prior to arrival by Dr. Robles. He has been seen several times in the emergency department because the Whittington is not draining. Patient states that he is leaking urine around the Whitting[place] and is very uncomfortable. I have greeted and performed a rapid initial assessment of this patient. A comprehensive ED assessment and evaluation of the patient including analysis of labs and imaging ( if obtained) and completion of medical decision making will be conducted by an additional ED provider. PHYSICAL EXAMINATION: GENERAL: Appears very uncomfortable cannot find a position of comfort while sitting. HEAD: Atraumatic, normocephalic. EYES: Pupils equal round extraocular movements intact, conjunctiva are normal. ENT: Nares patent NECK: Normal range of motion LUNGS: No respiratory distress Musculoskeletal: Normal range of motion NEUROLOGICAL: Normal speech, normal gait. PSYCH: Normal mood, normal affect. SKIN: Warm, Dry, normal turgor, no rashes or lesions noted. TRAVEL OUTSIDE OF THE U.S. IN LAST 30 DAYS: No - Related Data Allergies/Adverse Reactions: No Known Allergies Allergy (Unverified 08/09/15 23:44) Past Medical History - Past Medical History Cardiac Medical History: Reports: Hx DVT, Hx Hypercholesterolemia, Hx Hypertension Endocrine Medical History: Reports: Hx Diabetes Mellitus Type 2 Renal/ Medical History: Denies: Hx Peritoneal Dialysis Past Surgical History: Reports: Other - Prostate biopsy - Immunizations History of Influenza Vaccine for 08/2017 - 01/2018 Season: No Physical Exam - Vital signs Vitals: Temp Pulse Resp BP Pulse Ox 98.1 F 102 H 20 147/97 H 97 05/23/18 11:23 05/23/18 11:23 05/23/18 11:23 05/23/18 11:23 05/23/18 11:23 Course - Vital Signs Vital signs: Temp Pulse Resp BP Pulse Ox 98.1 F 102 H 20 147/97 H 97 05/23/18 11:23 05/23/18 11:23 05/23/18 11:23 05/23/18 11:23 05/23/18 11:23 Doctor's Discharge - Discharge Referrals: CONSEULO AGUILAR MD [Primary Care Provider] - Follow up as needed
[2018-05-23] MEDS ORDERED: LIDOCAINE 2% URO-JET 5 ML KIT MM ONE (11:49)
--- NOTE | 2018-05-23 12:01 | ER Document Report ---
HPI - HPI Patient complains to provider of: Brewer catheter problem Onset: This morning Onset/Duration: Gradual Quality of pain: Burning Pain Level: 3 Context: Patient states that he has had to void around the catheter and he is concerned that there is a clot blocking the catheter. Patient denies any abdominal pain back pain or fever. Patient denies any nausea or vomiting. Patient had a Brewer catheter placed as he was having difficulty voiding after having a prostate biopsy 5 days ago. Associated Symptoms: Other - Brewer catheter problem. denies: Fever Exacerbated by: Denies Relieved by: Denies Similar symptoms previously: Yes Recently seen / treated by doctor: Yes - ROS ROS below otherwise negative: Yes Systems Reviewed and Negative: Yes All other systems reviewed and negative - CONSTITUTIONAL Constitutional: DENIES: Fever, Chills - GASTROINTESTINAL Gastrointestinal: DENIES: Abdominal Pain, Nausea, Patient vomiting - URINARY Urinary: REPORTS: Dysuria - REPRODUCTIVE Reproductive: DENIES: : - MUSCULOSKELETAL Musculoskeletal: DENIES: Extremity pain, Back Pain - DERM Skin Color: Normal Skin Problems: None Past Medical History - General Information source: Patient, [facility] Records - Social History Smoking Status: Current Every Day Smoker Chew tobacco use (# tins/day): No Frequency of alcohol use: Occasional Drug Abuse: None Lives with: Family Family History: Reviewed & Not Pertinent Patient has suicidal ideation: No Patient has homicidal ideation: No - Past Medical History Cardiac Medical History: Reports: Hx DVT, Hx Hypercholesterolemia, Hx Hypertension Endocrine Medical History: Reports: Hx Diabetes Mellitus Type 2 Renal/ Medical History: Denies: Hx Peritoneal Dialysis Past Surgical History: Reports: Other - Prostate biopsy Vertical Provider Document - CONSTITUTIONAL Agree With Documented VS: Yes Exam Limitations: No Limitations General Appearance: WD/WN, No Apparent Distress - INFECTION CONTROL TRAVEL OUTSIDE OF THE [place] IN LAST 30 DAYS: No - HEENT HEENT: Atraumatic, Normocephalic - NECK Neck: Normal Inspection, Supple - RESPIRATORY Respiratory: Breath Sounds Normal, No Respiratory Distress - CARDIOVASCULAR Cardiovascular: Regular Rate, Regular Rhythm - GI/ABDOMEN Gastrointestinal: Abdomen Soft, Abdomen Non-Tender, No Organomegaly, Normal Bowel Sounds - BACK Back: Normal Inspection. negative: CVA Tenderness-Right, CVA Tenderness-Left - MUSCULOSKELETAL/EXTREMETIES Musculoskeletal/Extremeties: MAEW - NEURO Level of Consciousness: Awake, Alert, Appropriate Motor/Sensory: No Motor Deficit Course - Re-evaluation Re-evalutation: 05/23/18 12:01 Patient would prefer to have Brewer catheter removed. Patient states that he has been voiding around it and the catheter just keeps continuing to become clogged. Catheter removed. Will obtain a repeat urinalysis and urine for culture. - Vital Signs Vital signs: Temp Pulse Resp BP Pulse Ox 98.1 F 102 H 20 147/97 H 97 05/23/18 11:23 05/23/18 11:23 05/23/18 11:23 05/23/18 11:23 05/23/18 11:23 - Laboratory Laboratory results interpreted by me: 05/23/18 18:58 Labs- Entire Visit 05/23/18 12:31 Urine Color CLARE Urine Appearance SLIGHTLY-CLOUDY Urine pH 6.0 Ur Specific [place] 1.012 Urine Protein 30 H Urine Glucose (UA) NEGATIVE Urine Ketones NEGATIVE Urine Blood LARGE H Urine Nitrite NEGATIVE Urine Bilirubin NEGATIVE Urine Urobilinogen NEGATIVE Ur Leukocyte Esterase NEGATIVE Urine WBC (Auto) 7 Urine RBC (Auto) >182 U Hyaline Cast (Auto) 19 Urine Bacteria (Auto) TRACE Urine Mucus (Auto) RARE Urine Ascorbic Acid NEGATIVE Reviewed urinalysis results from yesterday Discharge - Discharge Clinical Impression: Brewer catheter problem Qualifiers: Encounter type: initial encounter Qualified Code(s): T83.9XXA - Unspecified complication of genitourinary prosthetic device, implant and graft, initial encounter Condition: Stable Disposition: HOME, SELF-CARE Additional Instructions: Return immediately for any new or worsening symptoms Followup with your primary care provider, call tomorrow to make a followup appointment Return immediately if you are unable to void after longer than 6 hours Follow-up with Dr. Quinones tomorrow as planned Referrals: CONSUELO AGUILAR MD [Primary Care Provider] - Follow up as needed LUZ ELENA QUINONES MD [[facility]] - Follow up tomorrow
[2018-05-23 12:59] LABS: APPEARANCE,URINE SLIGHTLY-CLOUDY; BILIRUBIN,URINE NEGATIVE (NEGATIVE); GLUCOSE, URINE NEGATIVE (NEGATIVE); KETONES,URINE NEGATIVE (NEGATIVE); LEUKOCYTE ESTERASE,URINE NEGATIVE (NEGATIVE); NITRITE,URINE NEGATIVE (NEGATIVE); PROTEIN,URINE 30 mg/dL (NEGATIVE); URINE SPECIFIC GRAVITY 1.012; UROBILINOGEN,URINE NEGATIVE mg/dL (<2.0)
[2018-05-23 13:02] LABS: COLOR,URINE AMBER
== END 2018-05-23 13:44 | disposition home or self-care (01) ==
LOC: ER 11:16
DX: T83.098A Other mechanical complication of other urinary catheter, initial encounter (principal); F17.200 Nicotine dependence, unspecified, uncomplicated; I10 Essential (primary) hypertension; E11.9 Type 2 diabetes mellitus without complications; Z98.890 Other specified postprocedural states
CPT/HCPCS: 81001; 87086; 99283

== ENCOUNTER → 2018-06-02 | Outpatient (CLI) | payer MEDICARE, BC ==
--- NOTE | 2018-06-02 08:43 | RADIOLOGY REPORT (SQ) ---
EXAM DESCRIPTION: CT ABD/PELVIS COMBO COMPLETED DATE/TIME: 06/02/2018 8:20 am REASON FOR STUDY: PROSTATE CA C61 MALIGNANT NEOPLASM OF PROSTATE COMPARISON: None. TECHNIQUE: CT scan of the abdomen and pelvis performed with and without intravenous contrast, and wi thout oral contrast. Contrasted imaging performed helical scanning technique and dynamic intravenous contrast injection. Images reviewed with lung, soft tissue, and bone windows. Reconstructed coronal a nd sagittal MPR images reviewed. Delayed images for evaluation of the urinary system also acquired. A ll images stored on PACS. All CT scanners at this facility use dose modulation, iterative reconstruction, and/or weight based d osing when appropriate to reduce radiation dose to as low as reasonably achievable (ALARA). [facility]: Dose Right [facility]: CareDose [facility]: Dose Right [facility]: Teradose 4D [facility]: Sitestar CONTRAST TYPE AND DOSE: contrast/concentration: Isovue 370.00 mg/ml; Total Contrast Delivered: 100.0 ml; Total Saline Delivered: 72.0 ml RENAL FUNCTION: Creatinine 1.2 RADIATION DOSE: CT Rad equipment meets quality standard of care and radiation dose reduction techniq ues were employed. CTDIvol: 21.3 - 24.5 mGy. DLP: 3756 mGy-cm. . LIMITATIONS: None. FINDINGS: NON-CONTRASTED IMAGING: No significant renal or bladder calcifications. No other significa nt organ calcifications. POST-CONTRASTED IMAGING: LOWER CHEST: No significant findings. No nodules or infiltrates. LIVER: Normal size. No masses. No dilated ducts. SPLEEN: Normal size. No focal lesions. PANCREAS: No masses. No significant calcifications. No adjacent inflammation or peripancreatic fluid collections. Pancreatic duct not dilated. GALLBLADDER: No identified stones by CT criteria. No inflammatory changes to suggest cholecystitis. ADRENAL GLANDS: No significant masses or asymmetry. RIGHT KIDNEY AND URETER: No solid masses. 2.9 cm renal cyst is identified. No significant calcific ations. No hydronephrosis or hydroureter. LEFT KIDNEY AND URETER: No solid masses. No significant calcifications. No hydronephrosis or hydr oureter. AORTA AND VESSELS: No aneurysm. No dissection. There is some ectasia of the abdominal aorta and salome c vessels with vascular calcifications. Renal arteries, SMA, celiac without stenosis. RETROPERITONEUM: No retroperitoneal adenopathy, hemorrhage or masses. BOWEL AND PERITONEAL CAVITY: No masses or inflammatory changes. No free fluid or peritoneal masses. APPENDIX: Normal. PELVIS: No mass. No free fluid. Normal bladder. ABDOMINAL WALL: No masses. No hernias. BONES: No significant or acute findings. OTHER: No other significant finding. IMPRESSION: No evidence for intra-abdominal or pelvic metastatic disease is seen. Other findings as noted above. TECHNICAL DOCUMENTATION: JOB ID: [id number] Quality ID # [id number]: Final reports with documentation of one or more dose reduction techniques (e.g., Au tomated exposure control, adjustment of the mA and/or kV according to patient size, use of iterative reconstruction technique) 2010 [email or web address]- All Rights Reserved Reading location - IP/workstation name: [email or web address]
--- NOTE | 2018-06-02 13:10 | RADIOLOGY REPORT (SQ) ---
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 The route of agent administration: Intravenous. ADDITIONAL DRUGS AND DOSES: None. TECHNIQUE: Routine delayed images at 3 hours post radionuclide injection acquired of the bony skelet on including anterior and posterior whole-body projections and additional focused images as needed. LIMITATIONS: None. FINDINGS: BONES: There is a small focal area of increase tracer activity at the inferior end of the sternum which presumably is degenerative or posttraumatic in nature. No other significant skeletal a bnormalities were identified. No skeletal areas of increase tracer activity to suggest metastatic di sease is seen. KIDNEYS: Symmetric excretion without obstruction. OTHER: No other significant finding. IMPRESSION: No evidence for skeletal metastatic disease. Other findings as noted above COMMENT: Quality measure 147: TECHNICAL DOCUMENTATION: JOB ID: [id number] [employer]- All Rights Reserved Reading location - IP/workstation name: [email or web address]
== END ==
LOC: RAD 07:39
PROVIDERS: ATTEND Urology
DX: C61 Malignant neoplasm of prostate (principal)
CPT/HCPCS: 82565; 78306; 74178; A9561

== ENCOUNTER 2019-03-02 18:34 | Observation (INO) | payer MEDICARE, BC, OTHER ==
[2019-03-02] MEDS ORDERED: DIPHENHYDRAMINE HCL 50 MG/ML VIAL ONE (18:41)
[2019-03-02] MEDS ORDERED: METHYLPREDNISOLONE INJ 125 MG/2 ML SDV ONE (18:41)
[2019-03-02] MEDS ORDERED: FAMOTIDINE INJ/PF 20 MG/2 ML SDV IV ONE ×2 (18:41→19:21)
[2019-03-02] MEDS ORDERED: EPINEPHRINE INJ/PF 1 MG/1 ML AMPULE ONE ×2 (18:42→18:48)
[2019-03-02] MEDS ORDERED: DIPHENHYDRAMINE HCL 50 MG/ML VIAL IV ONE (19:19)
[2019-03-02] MEDS ORDERED: EPINEPHRINE INJ/PF 1 MG/1 ML AMPULE IM PRN ×2 (19:20→19:22)
[2019-03-02] MEDS ORDERED: METHYLPREDNISOLONE INJ 125 MG/2 ML SDV IV ONE (19:21)
--- NOTE | 2019-03-02 19:26 | ER Document Report ---
ED Allergic Reaction - General Chief Complaint: Allergic Reaction Stated Complaint: SWOLLEN LIPS Time Seen by Provider: 03/02/19 19:02 Primary Care Provider: LUZ ELENA QUINONES MD [MAGDI HUTCHISON] - Follow up as needed TRAVEL OUTSIDE OF THE [place] IN LAST 30 DAYS: No - HPI Notes: Patient is a 64-year-old male that presents to the emergency department for chief complaint of swollen lips and tongue. Patient reports about 1 hour prior to presentation he started feeling some itching on the top of his right foot. Shortly after he began to have swelling of his lips and tongue. He states that he has had severe allergic reactions to fire ant stings in the past. He does have an EpiPen but has not used it. He denies any swelling in the back of his throat or difficulty breathing. He denies any lightheadedness, wheezing or chest pain. Patient has not taken any medication for his symptoms prior to coming to the ER. Past Medical History: Hypertension, hyperlipidemia Past Surgical History: Reviewed in chart Social History: Daily alcohol, daily tobacco, denies drug use Family History: Reviewed and noncontributory for presenting illness Allergies: Reviewed, see documented allergy list. REVIEW OF SYSTEMS: CONSTITUTIONAL : No fever No chills No diaphoresis No recent illness EENT: Lip and tongue swelling No vision changes No congestion No sore throat CARDIOVASCULAR: No chest pain No palpitations RESPIRATORY: No shortness of breath No cough No difficulty breathing GASTROINTESTINAL: No abdominal pain No nausea No vomiting No diarrhea GENITOURINARY: No dysuria No hematuria No difficulty urinating MUSCULOSKELETAL: No back pain No leg pain No arm pain SKIN: No rashes No lesions LYMPHATIC: No swollen, enlarged glands. NEUROLOGICAL: No lightheadedness No headache No weakness No paresthesias PSYCHIATRIC: No anxiety No depression PHYSICAL EXAMINATION: Vital signs reviewed, nursing noted reviewed. GENERAL: Well-appearing, well-nourished and in no acute distress. HEAD: Atraumatic, normocephalic. EYES: Eyes appear normal, extraocular movements intact, sclera anicteric, conjunctiva are normal. ENT: nares patent, moderate amount of laryngeal edema. Upper and lower lip edema. No posterior oropharyngeal or uvula edema. No stridor. Moist mucous membranes. NECK: Normal range of motion, supple without lymphadenopathy LUNGS: Breath sounds clear to auscultation bilaterally and equal. No wheezes rales or rhonchi. HEART: Regular rate and rhythm without murmurs ABDOMEN: Soft, nontender, normoactive bowel sounds. No rebound, guarding, or rigidity. No masses appreciated. EXTREMITIES: Nontender, good range of motion, no pitting or edema. NEUROLOGICAL: No focal neurological deficits. Moves all extremities spontaneously Motor and sensory grossly intact on exam. PSYCH: Normal mood, normal affect. SKIN: Warm, Dry, normal turgor, urticarial rash to upper chest and bilateral proximal upper extremities. Erythema with central clearing on dorsal right foot consistent with insect sting - Related Data Allergies/Adverse Reactions: No Known Allergies Allergy (Verified 03/02/19 18:35) Past Medical History - Social History Smoking Status: Current Every Day Smoker Chew tobacco use (# tins/day): No Frequency of alcohol use: Heavy Drug Abuse: None Family History: Reviewed & Not Pertinent Patient has suicidal ideation: No Patient has homicidal ideation: No - Past Medical History Cardiac Medical History: Reports: Hx DVT, Hx Hypercholesterolemia, Hx Hypertension Endocrine Medical History: Reports: Hx Diabetes Mellitus Type 2 Renal/ Medical History: Denies: Hx Peritoneal Dialysis Past Surgical History: Reports: Hx Orthopedic Surgery, Hx Testicular Surgery, Other - Prostate biopsy Physical Exam - Vital signs Vitals: Resp Pulse Ox 12 97 03/02/19 18:49 03/02/19 18:49 Course - Re-evaluation Re-evalutation: 03/02/19 19:25 Vitals reviewed. Nursing notes reviewed. Patient presented with significant amount of lip and tongue edema. He was given epinephrine, Benadryl, Solu-Medrol and Pepcid. 5 minutes after initial epinephrine injection patient was having some improvement but still has significant swelling. He was given a second dose of epinephrine. Patient has continued to have improvement of his edema. He is able to speak more clearly and is currently protecting his airway. We will continue to monitor. 03/02/19 21:16 Patient reevaluated and has significant improvement of symptoms. His lingual edema has completely resolved. He does still have upper and lower lip edema but no apparent swelling posterior to his gingival line. Patient was sleeping when I entered the room and was oxygenating at 88%. He denies history of pulmonary disease or COPD. Patient is overweight and a heavy smoker which is likely the cause of his hypoxia with sleeping. When he was awake he was oxygenating in the 90s on room air. Patient was placed on 2 L nasal cannula oxygen. Plan to admit to the hospital for monitoring of his edema and oxygen levels. 03/02/19 21:32 Patient's care discussed with Dr. Brennan who accepts admission - Vital Signs Vital signs: Temp Pulse Resp BP Pulse Ox 98.4 F 21 H 131/90 H 92 03/02/19 18:57 03/02/19 21:01 03/02/19 21:01 03/02/19 21:01 - Diagnostic Test Radiology reviewed: Image reviewed Critical Care Note - Critical Care Note Total time excluding time spent on procedures (mins): 45 Comments: Critical care time 45 exclusive from separate billable procedures for a patient requiring complex medical decision making, and high potential for clinical deterioration. Time spent obtaining history from patient or surrogate, discussio ns with consultants, development of treatment plan with patient or surrogate, evaluation of patient's response to treatment, examination of patient, ordering and performing treatments and interventions, ordering and review of laboratory studies, re-evaluation of patient's condition, ordering and review of radiographic studies and review of old charts Discharge - Discharge Clinical Impression: Anaphylaxis Qualifiers: Encounter type: initial encounter Qualified Code(s): T78.2XXA - Anaphylactic shock, unspecified, initial encounter Condition: Stable Disposition: ADMITTED OBSERVATION Admitting Provider: Mika (Hospitalist) Unit Admitted: ICU
[2019-03-02] MEDS ORDERED: IPRATROPIUM/ALBUTEROL 0.5-2.5 MG/3 ML AMPUL NEB PRN (21:32)
[2019-03-02] MEDS ORDERED: NORMAL SALINE 1000 ML 1,000 ML IV PRN (21:32)
[2019-03-02] MEDS ORDERED: MAG HYDROX/AL HYDROX/SIMETH SUSP 30 ML UDCUP PO PRN (21:32)
[2019-03-02] MEDS ORDERED: ACETAMINOPHEN 325 MG TABLET PO PRN (21:32)
[2019-03-02] MEDS ORDERED: DIPHENHYDRAMINE HCL 50 MG/ML VIAL IV PRN (21:32)
[2019-03-02] MEDS ORDERED: HEPARIN SOD (PORCINE) 5,000 UNIT/ML 1 ML SYRINGE SUBCUT SCH (22:00)
[2019-03-02 22:09] LABS: ABSOLUTE EOSINOPHILS # (AUTO) 0.1 10^3/uL (0.0-0.6); ABSOLUTE LYMPHOCYTES (AUTO) 2.1 10^3/uL (0.5-4.7); ABSOLUTE MONOCYTES (AUTO) 0.4 10^3/uL (0.1-1.4); ABSOLUTE NEUT (AUTO) 3.5 10^3/uL (1.7-8.2); BASOPHILS % (AUTO) 0.8 % (0-2); EOSINOPHILS % (AUTO) 2.4 % (0-6); HEMOGLOBIN 14.3 g/dL (13.5-17.0); LYMPHOCYTES % (AUTO) 33.6 % (13-45); MEAN CORPUSCULAR HEMOGLOBIN 32.5 pg (27.0-33.4); MEAN CORPUSCULAR VOLUME 93 fl (80-97); MONOCYTES % (AUTO) 7.1 % (3-13); PLATELET COUNT 180 10^3/uL (150-450); RED BLOOD COUNT 4.41 10^6/uL (4.35-5.55); RED CELL DISTRIBUTION WIDTH 13.5 % (11.5-14.0); SEGMENTED NEUTROPHILS % (AUTO) 56.1 % (42-78); TOTAL CELLS COUNTED % (AUTO) 100 %; WHITE BLOOD COUNT 6.2 10^3/uL (4.0-10.5)
[2019-03-02] MEDS: IPRATROPIUM/ALBUTEROL 0.5-2.5 MG/3 ML AMPUL NEB SCH (22:12)
--- NOTE | 2019-03-02 22:14 | RADIOLOGY REPORT (SQ) ---
EXAM DESCRIPTION: XR CHEST 1 VIEW COMPLETED DATE/TME: 03/02/2019 21:09 CLINICAL HISTORY: 64 years, Male, cough COMPARISON: Prior study from 08/10/2015 NUMBER OF VIEWS: Two TECHNIQUE: Two frontal radiographs of the chest were obtained portably LIMITATIONS: None. FINDINGS: Cardiac and mediastinal contours are normal. Patchy left basilar opacity is noted along with a suspected small left pleural effusion. No pneumothorax. There is remote deformity involving the left clavicular midshaft. IMPRESSION: Patchy left basilar opacity with suspected small left pleural effusion, suspicious for pneumonia to include aspiration. Follow-up to clearing is suggested. copyright 2010 [employer]- All Rights Reserved
[2019-03-02 22:16] LABS: ANION GAP 10 (5-19); BLOOD UREA NITROGEN 16 mg/dL (7-20); CALCIUM 9.6 mg/dL (8.4-10.2); CARBON DIOXIDE 26 mmol/L (22-30); CHLORIDE 104 mmol/L (98-107); GLUCOSE 138 mg/dL (75-110)
[2019-03-03] MEDS: METHYLPREDNISOLONE INJ 125 MG/2 ML SDV IV SCH ×2 (00:40→06:04)
[2019-03-03] MEDS: IPRATROPIUM/ALBUTEROL 0.5-2.5 MG/3 ML AMPUL NEB SCH ×3 (02:12→13:43)
[2019-03-03] MEDS ORDERED: VALSARTAN 160 MG TABLET PO ONE (02:45)
[2019-03-03] MEDS ORDERED: ATENOLOL 50 MG TABLET PO ONE (02:45)
[2019-03-03] MEDS ORDERED: HYDROCHLOROTHIAZIDE 25 MG TABLET PO ONE (02:45)
[2019-03-03 04:17] LABS: HEMATOCRIT 39.9 % (37.9-51.0); MEAN CORPUSCULAR HEMOGLOBIN 32.2 pg (27.0-33.4); MEAN CORPUSCULAR VOLUME 92 fl (80-97); PLATELET COUNT 152 10^3/uL (150-450); RED BLOOD COUNT 4.33 10^6/uL (4.35-5.55); RED CELL DISTRIBUTION WIDTH 13.5 % (11.5-14.0); WHITE BLOOD COUNT 5.5 10^3/uL (4.0-10.5)
[2019-03-03 04:38] LABS: ANION GAP 9 (5-19); BLOOD UREA NITROGEN 16 mg/dL (7-20); CALCIUM 9.8 mg/dL (8.4-10.2); CARBON DIOXIDE 20 mmol/L (22-30); CHLORIDE 108 mmol/L (98-107); GLUCOSE 181 mg/dL (75-110); POTASSIUM 4.3 mmol/L (3.6-5.0); SODIUM 136.7 mmol/L (137-145)
--- NOTE | 2019-03-03 05:16 | PDOC H&P ---
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 Patient presents 1 hour after developing itching and welts to the left upper arm followed by swelling of the lip and tongue prompting evaluation in the emergency room. He has an EpiPen but did not use it and in the emergency room receives epinephrine, Benadryl, Solu-Medrol and Pepcid with some response however received a second dose of epinephrine and referred to the hospitalist for admission. Patient denies difficulty swallowing there is no coughing or stridor patient denies recent change in medications or known exposure fire ants a known former trigger. Past Medical History Cardiac Medical History: Reports: DVT, Hyperlipidema, Hypertension Endocrine Medical History: Reports: Diabetes Mellitus Type 2 Past Surgical History Past Surgical History: Reports: Orthopedic Surgery, Other - Prostate biopsy Social History Information Source: Patient, [facility] Records Smoking Status: Current Every Day Smoker Frequency of Alcohol Use: Occasional Hx Recreational Drug Use: No Drugs: None Hx Prescription Drug Abuse: No - Advance Directive Resuscitation Status: Full Code Family History Family History: Hypertension Parental Family History Reviewed: Yes Children Family History Reviewed: Yes Sibling(s) Family History Reviewed.: Yes Medication/Allergy Home Medications: Aspirin [[place] Aspirin] 81 mg PO DAILY 08/10/15 Rivaroxaban [Xarelto 10 mg Tablet] 20 mg PO QPM 08/10/15 Allopurinol [Zyloprim 300 mg Tablet] 300 mg PO DAILY 04/11/18 Atenolol [Tenormin 50 mg Tablet] 50 mg PO DAILY 04/11/18 Atorvastatin Calcium [Lipitor 40 mg Tablet] 40 mg PO DAILY 04/11/18 Diphenhydramine HCl [Benadryl] 25 mg PO Q6H 5 Days #20 capsule 04/11/18 Epinephrine [Epipen 2-Marin] 0.3 mg IJ PRN PRN 30 Days #1 auto.injct 04/11/18 Famotidine [Pepcid 20 mg Tablet] 40 mg PO Q12 5 Days #10 tablet 06/03/18 Lansoprazole [Prevacid 30 mg Odt Tablet] 30 mg PO Q6AM 30 Days #30 tab.juliette. 04/11/18 Prednisone 20 mg PO DAILY 5 Days #5 tablet 04/11/18 Tadalafil [Cialis] 5 mg PO DAILY 04/11/18 Valsartan/Hydrochlorothiazide [Valsartan-Hctz 320-25 mg Tab] 1 tab PO DAILY 04/11/18 Ciprofloxacin HCl [Cipro 500 mg Tablet] 500 mg PO BID #10 tablet 05/21/18 Allergies/Adverse Reactions: No Known Allergies Allergy (Verified 03/02/19 18:35) Review of Systems Constitutional: ABSENT: chills, fever(s), headache(s), weight gain, weight loss Eyes: ABSENT: visual disturbances Ears: ABSENT: hearing changes Cardiovascular: ABSENT: chest pain, dyspnea on exertion, edema, orthropnea, palpitations Respiratory: ABSENT: cough, hemoptysis Gastrointestinal: ABSENT: abdominal pain, constipation, diarrhea, hematemesis, hematochezia, nausea, vomiting Genitourinary: ABSENT: dysuria, hematuria Musculoskeletal: ABSENT: joint swelling Integumentary: ABSENT: rash, wounds Neurological: ABSENT: abnormal gait, abnormal speech, confusion, dizziness, focal weakness, syncope Psychiatric: ABSENT: anxiety, depression, homidical ideation, suicidal ideation Endocrine: ABSENT: cold intolerance, heat intolerance, polydipsia, polyuria Hematologic/Lymphatic: ABSENT: easy bleeding, easy bruising Physical Exam Vital Signs: Temp Pulse Resp BP Pulse Ox 98.2 F 84 20 169/104 H 96 03/03/19 03:44 03/03/19 02:12 03/03/19 02:16 03/03/19 02:16 03/03/19 02:16 Intake & Output 03/01/19 03/02/19 03/03/19 11:59 11:59 11:59 Output Total 600 Balance -600 Weight 128.2 kg General appearance: PRESENT: cooperative, mild distress, well-developed, well- nourished. ABSENT: disheveled Head exam: PRESENT: atraumatic, normocephalic Eye exam: PRESENT: conjunctiva pink, EOMI, PERRLA. ABSENT: scleral icterus Ear exam: PRESENT: normal external ear exam Mouth exam: PRESENT: moist, tongue midline, other - Mild erythema and swelling to the tongue, upper and lower lip Neck exam: ABSENT: carotid bruit, JVD, lymphadenopathy, thyromegaly Respiratory exam: PRESENT: clear to auscultation felix. ABSENT: rales, rhonchi, wheezes Cardiovascular exam: PRESENT: RRR. ABSENT: diastolic murmur, rubs, systolic murmur Pulses: PRESENT: normal dorsalis pedis pul Vascular exam: PRESENT: normal capillary refill GI/Abdominal exam: PRESENT: normal bowel sounds, soft. ABSENT: distended, guarding, mass, organolmegaly, rebound, tenderness Rectal exam: PRESENT: deferred Extremities exam: PRESENT: full ROM, other - 6 5 mm indurated pruritic areas of the medial aspect left upper arm. ABSENT: calf tenderness, clubbing Neurological exam: PRESENT: alert, awake, oriented to person, oriented to place, oriented to time, oriented to situation, CN II-XII grossly intact. ABSENT: motor sensory deficit Psychiatric exam: PRESENT: appropriate affect, normal mood. ABSENT: homicidal ideation, suicidal ideation Skin exam: PRESENT: dry, intact, warm, other - 6 5 mm indurated pruritic areas of the medial aspect left upper arm. ABSENT: cyanosis, rash Adult Front & Back Image: 1 - 6 5 mm indurated pruritic areas of the medial aspect left upper arm Results Laboratory Results: 03/03/19 03:40 03/03/19 03:40 03/02/19 03/02/19 03/03/19 18:53 18:53 03:40 WBC 6.2 5.5 RBC 4.41 4.33 L Hgb 14.3 14.0 Hct 41.0 39.9 MCV 93 92 MCH 32.5 32.2 MCHC 35.0 35.0 RDW 13.5 13.5 Plt Count 180 152 Seg Neutrophils % 56.1 Lymphocytes % 33.6 Monocytes % 7.1 Eosinophils % 2.4 Basophils % 0.8 Absolute Neutrophils 3.5 Absolute Lymphocytes 2.1 Absolute Monocytes 0.4 Absolute Eosinophils 0.1 Absolute Basophils 0.0 Sodium 140.0 Potassium 4.0 Chloride 104 Carbon Dioxide 26 Anion Gap 10 BUN 16 Creatinine 1.32 H Est GFR ( Amer) > 60 Est GFR (Non-Af Amer) 54 L Glucose 138 H Calcium 9.6 03/03/19 03:40 WBC RBC Hgb Hct MCV MCH MCHC RDW Plt Count Seg Neutrophils % Lymphocytes % Monocytes % Eosinophils % Basophils % Absolute Neutrophils Absolute Lymphocytes Absolute Monocytes Absolute Eosinophils Absolute Basophils Sodium 136.7 L Potassium 4.3 Chloride 108 H Carbon Dioxide 20 L Anion Gap 9 BUN 16 Creatinine 0.80 Est GFR ( Amer) > 60 Est GFR (Non-Af Amer) > 60 Glucose 181 H Calcium 9.8 Impressions: Chest X-Ray 03/02/19 21:09 IMPRESSION: Patchy left basilar opacity with suspected small left pleural effusion, suspicious for pneumonia to include aspiration. Follow-up to clearing is suggested. copyright 2010 [employer]- All Rights Reserved Assessment and Plan - Diagnosis (1) Anaphylaxis Qualifiers: Encounter type: initial encounter Qualified Code(s): T78.2XXA - Anaphylactic shock, unspecified, initial encounter Is this a current diagnosis for this admission?: Yes Plan: ICU observation for rebound continue Solu-Medrol, Pepcid, Benadryl and epinephrine as needed (2) Chronic anticoagulation Is this a current diagnosis for this admission?: Yes Plan: For DVT, continue Xarelto (3) Elevated glucose Is this a current diagnosis for this admission?: Yes Plan: Secondary to stress response versus Solu-Medrol. Observation only - Time Time Spent with patient: 15-24 minutes
[2019-03-03] MEDS ORDERED: ATORVASTATIN CALCIUM 40 MG TABLET PO SCH (10:00)
[2019-03-03] MEDS ORDERED: FAMOTIDINE INJ/PF 20 MG/2 ML SDV IV SCH (10:00)
[2019-03-03] MEDS ORDERED: ATENOLOL 50 MG TABLET PO SCH (10:00)
[2019-03-03 12:29] VITALS: BP 151/93
--- NOTE | 2019-03-03 12:45 | PDOC DISCHARGE SUMMARY ---
Addendum entered and electronically signed by DAY CARNEY NP 03/05/19 16:28: Assessment & Plan - Diagnosis (1) Allergic reaction Qualifiers: Encounter type: initial encounter Qualified Code(s): T78.40XA - Allergy, unspecified, initial encounter Is this a current diagnosis for this admission?: Yes Plan: Resolved secondary to fire ants, will take prednisone as directed the next 5 days (2) Angioedema Qualifiers: Encounter type: initial encounter Qualified Code(s): T78.3XXA - Angioneurotic edema, initial encounter Is this a current diagnosis for this admission?: Yes Plan: Resolved completely with IV steroids , benadryl and pepcid (3) Chronic anticoagulation Is this a current diagnosis for this admission?: Yes Original Note: General - Admit/Disc Date/PCP Admission Date/Primary Care Provider: 03/02/19 21:34 CONSUELO AGUILAR MD Discharge Date: 03/03/19 - Discharge Diagnosis (3) Chronic anticoagulation Is this a current diagnosis for this admission?: Yes - Additional Information Resuscitation Status: Full Code Discharge Diet: Regular Discharge Activity: Activity As Tolerated Prescriptions: Prednisone [Deltasone] 20 mg PO BID 5 Days #10 tablet Home Medications: Aspirin [Adult Low Dose Aspirin EC] 81 mg PO DAILY 03/03/19 Atenolol [Tenormin 50 mg Tablet] 50 mg PO DAILY 03/03/19 Atorvastatin Calcium [Lipitor 80 mg Tablet] 80 mg PO QHS 03/03/19 Epinephrine [Epipen 2-Marin] 0.3 mg SQ ASDIR PRN 03/03/19 Febuxostat [Uloric 40 mg Tablet] 40 mg PO DAILY 03/03/19 Prednisone [Deltasone] 20 mg PO BID 5 Days #10 tablet 03/03/19 Rivaroxaban [Xarelto] 20 mg PO WSUPPER 03/03/19 Sildenafil Citrate [Revatio 20 mg Tablet] 20 mg PO ASDIR PRN 03/03/19 History of Present Illness History of Present Illness: TANG CHU is a 64 year old male Hospital Course Hospital Course: TANG CHU is a 64 year old male with a past medical history of tobacco dependence, angioedema, 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 Patient presents 1 hour after developing itching and welts to the left upper arm followed by swelling of the lip and tongue prompting evaluation in the emergency room. He has an EpiPen but did not use it and in the emergency room receives epinephrine, Benadryl, Solu-Medrol and Pepcid with some response however received a second dose of epinephrine and referred to the hospitalist for admission. Patient denies difficulty swallowing there is no coughing or stridor patient denies recent change in medications or known exposure fire ants a known former trigger. Patient was admitted to ICU for close observation. He was started on IV solumedrol around the clock. He had quick resolution of his angioedema and hives. He was noted to have red papular rash with pustules on his feet compatible with fire ant bites that he had developed angioedema prior. We discussed the need for him to use epi pen immediately should this reoccur. He had stable vital signs. He was off oxygen and asking to be discharged. He can follow up with his PCP within one week Physical Exam Vital Signs: Temp Pulse Resp BP Pulse Ox 98.7 F 81 22 H 151/93 H 95 03/03/19 12:00 03/03/19 12:00 03/03/19 12:00 03/03/19 12:00 03/03/19 12:00 Intake & Output 03/02/19 03/03/19 03/04/19 06:59 06:59 06:59 Intake Total 1560 Output Total 900 1050 Balance -900 510 Weight 128.2 kg General appearance: PRESENT: no acute distress, obese, well-developed, well- nourished Head exam: PRESENT: atraumatic, normocephalic Eye exam: PRESENT: conjunctiva pink, EOMI, PERRLA. ABSENT: scleral icterus Ear exam: PRESENT: normal external ear exam Mouth exam: PRESENT: moist, tongue midline Neck exam: ABSENT: carotid bruit, JVD, lymphadenopathy, thyromegaly Respiratory exam: PRESENT: clear to auscultation felix. ABSENT: rales, rhonchi, wheezes Cardiovascular exam: PRESENT: RRR. ABSENT: diastolic murmur, rubs, systolic murmur Pulses: PRESENT: normal dorsalis pedis pul Vascular exam: PRESENT: normal capillary refill GI/Abdominal exam: PRESENT: normal bowel sounds, soft. ABSENT: distended, guarding, mass, organolmegaly, rebound, tenderness Rectal exam: PRESENT: deferred Extremities exam: PRESENT: full ROM. ABSENT: calf tenderness, clubbing, pedal edema Neurological exam: PRESENT: alert, awake, oriented to person, oriented to place, oriented to time, oriented to situation, CN II-XII grossly intact. ABSENT: motor sensory deficit Psychiatric exam: PRESENT: appropriate affect, normal mood. ABSENT: homicidal ideation, suicidal ideation Skin exam: PRESENT: dry, intact, warm. ABSENT: cyanosis, rash Results Laboratory Results: 03/03/19 03:40 03/03/19 03:40 03/02/19 03/02/19 03/03/19 18:53 18:53 03:40 WBC 6.2 5.5 RBC 4.41 4.33 L Hgb 14.3 14.0 Hct 41.0 39.9 MCV 93 92 MCH 32.5 32.2 MCHC 35.0 35.0 RDW 13.5 13.5 Plt Count 180 152 Seg Neutrophils % 56.1 Lymphocytes % 33.6 Monocytes % 7.1 Eosinophils % 2.4 Basophils % 0.8 Absolute Neutrophils 3.5 Absolute Lymphocytes 2.1 Absolute Monocytes 0.4 Absolute Eosinophils 0.1 Absolute Basophils 0.0 Sodium 140.0 Potassium 4.0 Chloride 104 Carbon Dioxide 26 Anion Gap 10 BUN 16 Creatinine 1.32 H Est GFR ( Amer) > 60 Est GFR (Non-Af Amer) 54 L Glucose 138 H Calcium 9.6 03/03/19 03:40 WBC RBC Hgb Hct MCV MCH MCHC RDW Plt Count Seg Neutrophils % Lymphocytes % Monocytes % Eosinophils % Basophils % Absolute Neutrophils Absolute Lymphocytes Absolute Monocytes Absolute Eosinophils Absolute Basophils Sodium 136.7 L Potassium 4.3 Chloride 108 H Carbon Dioxide 20 L Anion Gap 9 BUN 16 Creatinine 0.80 Est GFR ( Amer) > 60 Est GFR (Non-Af Amer) > 60 Glucose 181 H Calcium 9.8 Impressions: Chest X-Ray 03/02/19 21:09 IMPRESSION: Patchy left basilar opacity with suspected small left pleural effusion, suspicious for pneumonia to include aspiration. Follow-up to clearing is suggested. copyright 2010 [email or web address]- All Rights Reserved Qualifiers - * PATIENT BEING DISCHARGED WITH ANY OF THE FOLLOWING DIAGNOSIS: No
[2019-03-03] MEDS ORDERED: RIVAROXABAN 10 MG TABLET PO SCH (18:00)
== END 2019-03-03 13:49 | disposition home or self-care (01) ==
LOC: ER 18:34 → EH 21:34 → ICU 03-03 01:08
PROVIDERS: ADMIT Internal Medicine; ATTEND Internal Medicine
DX: T78.49XA Other allergy, initial encounter (principal); T78.3XXA Angioneurotic edema, initial encounter; I10 Essential (primary) hypertension; F17.200 Nicotine dependence, unspecified, uncomplicated; R09.02 Hypoxemia; R73.9 Hyperglycemia, unspecified; E66.9 Obesity, unspecified; Z79.01 Long term (current) use of anticoagulants; Z87.892 Personal history of anaphylaxis; Z91.038 Other insect allergy status; Z79.82 Long term (current) use of aspirin; Z86.79 Personal history of other diseases of the circulatory system
CPT/HCPCS: 94640 ×2; 99291; 96372; 96374; 96375; 36415 ×2; 85025; 85027; 80048 ×2; 71045; G0378 ×2; A9270 ×3; J1200; J0171; J2930 ×2; J7030; S0028 ×2; J7620

== ENCOUNTER → 2020-04-30 | Outpatient (CLI) | payer MEDICARE, BC ==
--- NOTE | 2020-04-30 15:24 | RADIOLOGY REPORT (SQ) ---
EXAM DESCRIPTION: VENOUS UNILATERAL LOWER IMAGES COMPLETED DATE/TIME: 04/30/2020 2:50 pm REASON FOR STUDY: RLE PAIN/SWELLING I82.409 ACUTE EMBOLISM AND THOMBOS UNSP DEEP VN UNSP LOWER E COMPARISON: None. TECHNIQUE: Dynamic and static alonso scale and color images acquired of the right leg venous system. S elected spectral images acquired with additional compression and augmentation maneuvers. The contrala teral common femoral vein and saphenofemoral junction were also imaged. Images stored on PACS. LIMITATIONS: None. FINDINGS: COMMON FEMORAL: Normal phasicity, compression and augmentation. No visualized echogenic ma terial on alonso scale. No defects on color Doppler. FEMORAL: The proximal to mid femoral vein are noncompressible and on grayscale there are echogenic oc clusive thrombi in the midportion of the vessel. POPLITEAL: Normal compression, augmentation. No visualized echogenic material on alonso scale. No defec ts on color Doppler. CALF VESSELS: Normal compression, augmentation. No visualized echogenic material on alonso scale. No de fects on color Doppler. GSV and SSV: Normal compression. No visualized echogenic material on alonso scale. No defects on color Doppler. ANY DEEP VENOUS INSUFFICIENCY: Not evaluated. ANY EVIDENCE OF POPLITEAL CYST: No. OTHER: No other significant finding. CONTRALATERAL COMMON FEMORAL VEIN: Normal phasicity, compression and augmentation. No visualized echogenic material on alonso scale. No de fects on color images. IMPRESSION: SUBACUTE TO CHRONIC DVT IN THE PROXIMAL TO MID FEMORAL VEIN. TECHNICAL DOCUMENTATION: JOB ID: [id number] 2010 [employer]- All Rights Reserved Reading location - IP/workstation name: [email or web address]
== END ==
LOC: SP 13:37
PROVIDERS: ATTEND Family Medicine
DX: I82.411 Acute embolism and thrombosis of right femoral vein (principal)
CPT/HCPCS: 93971